=== PATIENT | male | born 1940 ===

== ENCOUNTER 2024-10-06 05:00 | Outpatient (RCR) | payer MEDICARE, SELFPAY | END 2024-11-04 23:59 | disposition home or self-care (01) | LOC: MPT 05:00 | PROVIDERS: Visit Provider Ophthalmology | DX: Z47.1 Aftercare following joint replacement surgery (principal); Z96.652 Presence of left artificial knee joint | CPT/HCPCS: 97110; 97161 ==

== ENCOUNTER 2024-12-03 13:52 | Outpatient (RCR) | payer MEDICARE, SELFPAY | END 2024-12-05 23:59 | disposition home or self-care (01) | LOC: MPT 13:52 | PROVIDERS: Visit Provider Physical Therapist | DX: Z47.1 Aftercare following joint replacement surgery (principal); Z96.652 Presence of left artificial knee joint | CPT/HCPCS: 97110; 97530 ==

== ENCOUNTER 2024-12-15 12:01 | Outpatient (RCR) | payer MEDICARE, SELFPAY | END 2024-12-18 08:49 | disposition home or self-care (01) | LOC: MPT 12:01 | PROVIDERS: Visit Provider Physical Therapist | DX: Z47.1 Aftercare following joint replacement surgery (principal); Z96.652 Presence of left artificial knee joint | CPT/HCPCS: 97110; 97530 ==